=== PATIENT | female | born 1965 | race Caucasian/White ===

== ENCOUNTER 2023-06-04 04:08 | Inpatient (IN) | payer OTHER, SELFPAY ==
[2023-06-04] VITALS (13 sets, daily range): BP systolic 115–190; BP diastolic 68–149; PULSE 62–101; RESP 12–22; TEMP 36.4–37; O2SAT 86–99
--- NOTE | 2023-06-04 04:24 | ECG_ITS ---
[facility] Test Date: 2023-06-04 Pat Name: Rema Kumar Department: Room: Gender: Female Division Human Resources Manager: : 1965 Requested By: Felix Howard Order Number: [id number] Alatorre MD: Angelique Mackenzie M.D. Measurements Intervals [place] Rate: 85 P: 45 AK: 171 QRS: 31 QRSD: 94 T: 55 QT: 383 QTc: 457 Interpretive Statements SINUS RHYTHM No previous ECG available for comparison Electronically Signed On 06-06-2023 18:45:16 PHONE SCREENER by Angelique Mackenzie M.D. [email or web address]
[2023-06-04] MEDS: LORazepam 2 mg/mL INJ 1 mL 1 MG IM (04:29)
[2023-06-04] MEDS: ziprasidone 20 mg/mL SDV IM (04:30)
[2023-06-04] MEDS: water for injection-sterile 10 ML 1.2 ML (04:30)
[2023-06-04 05:58] LABS: Add Urine Microscopic? NO; Charge for UA Resulting for Rev
[2023-06-04 05:58] LABS: Basophils % 0.7 %; Eosinophils % 0.7 %; Hematocrit 39.8 % (36-47); Lymphocytes # 1.2 10^3/uL (0.8-4.8); Lymphocytes % 29.8 %; Mean Corpuscular HGB Conc 30.9 g/dL (30-55); Mean Corpuscular Hemoglobin 28.7 pg (27-33); Mean Corpuscular Volume 92.8 fl (85-98); Mean Platelet Volume 10.2 fL (7.4-10.4); Monocytes # 0.4 10^3/uL (0.2-0.9); Monocytes % 10.5 %; Neutrophils # 2.37 10^3/uL (1.8-7.7); Neutrophils % 58.1 %; Nucleated Red Blood Cells % 0 %; Platelet Count 181 10^3/cmm (157-399); Red Blood Count 4.29 10^6/uL (3.85-5.65); Red Cell Distribution Width 14.2 % (12.1-15.1); White Blood Count 4.09 10^3/uL (3.29-11.43)
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
[2023-06-04 06:13] LABS: Bilirubin Urine Neg (Negative); Blood Urine Neg (Negative); Glucose Urine UA Norm (Normal); Ketones Urine 1+ (Negative); Leukocyte Esterase Urine Negative (Negative); Nitrate Urine Negative (Negative); Protein Urine Neg (Negative); Specific Gravity, Urine 1.015 (1.005-1.030); Urine Appearance Clear (CLEAR); Urine Color Yellow (Yellow); Urobilinogen Urine Neg (Negative); pH Urine 6 (5-7)
[2023-06-04 06:21] LABS: Amphetamines Screen Urine Negative (Negative); Barbiturates Screen Urine Negative (Negative); Benzodiazepines Screen Urine Negative (Negative); Cocaine Screen Urine Negative (Negative); Opiate Screen Urine Negative (Negative); PCP Screen Urine Negative (Negative); THC Screen Urine Positive (Negative)
--- NOTE | 2023-06-04 06:24 | PC.NURSE ---
The contacted the [facility] and spoke with NATALIE Leyva; pt [facility] for [facility]. Per Steven they will place a note on her chart and will call if a bed becomes available.
[2023-06-04 06:28] LABS: SARS Covid-2 Antigen negative (Negative)
[2023-06-04 06:30] LABS: Alanine Aminotransferase < 5 U/L (0-33); Albumin Level 4.2 g/dL (3.5-5.2); Alkaline Phosphatase 107 U/L (35-105); Anion Gap 13.5 (5-19); Aspartate Amino Transferase 9 U/L (0-32); Blood Urea Nitrogen 21 mg/dL (6-20); Calcium 9.9 mg/dL (8.5-10.5); Carbon Dioxide 28 mmol/L (22-29); Chloride 104 mmol/L (98-107); Globulin 3.3 g/dL (1.3-4.6); Glomerular Filtration Rate 163.4 mL/min (90-130); Glucose 108 mg/dL (65-115); Osmolality Calculated 298 mOsm/kg (285-295); Potassium 3.5 mmol/L (3.5-5.1); Sodium 142 mmol/L (136-145); Thyroid Stimulating Hormone 0.98 uIU/mL (0.27-4.20); Total Bilirubin 0.3 mg/dL (0.15-1.2); Total Protein 7.5 g/dL (6.6-8.7)
[2023-06-04 06:37] LABS: Acetaminophen < 5.0 ug/mL (10-30); Alcohol Level < 10 mg/dL (0-10); Salicylate < 0.3 mg/dL (3-10)
--- NOTE | 2023-06-04 07:35 | PC.NURSE ---
96 hour hold rights This nurse attempted to read 96 hour hold rights to patient. Patient asleep and would not wake to listen to 96 hour hold rights. Vital signs stable. Copy of rights left at the bedside.
[2023-06-04] MEDS: pregabalin 100 mg Capsule 200 MG PO ×2 (14:39→20:54)
[2023-06-04] MEDS: ropinirole 2 mg Tablet 4 MG PO ×2 (14:40→20:53)
[2023-06-04] MEDS: carbidopa-levodopa 25-100mg Tablet 2 EACH PO ×4 (14:40→21:00)
[2023-06-04] MEDS: metoprolol tartrate 25 mg Tablet PO (17:55)
[2023-06-04] MEDS: thiamine 100 mg Tablet PO (17:55)
--- NOTE | 2023-06-04 20:27 | PC.NURSE ---
IN BED RESTING, TOOK 1900 MEDICATIONS WITHOUT DIFFICULTY. SITS UP IN BED AND ROCKS BACK AND FORTH CONSTANTLY. NURSE TECH ASSISTED PT TO BATHROOM IN WHEELCHAIR WITH TWO ASSIST. PT VOIDED APPROXIMATELY 600 MLS OF URINE WITHOUT DIFFICULTY AND REPORTED TO NURSE I REALLY EMPTIED IT THAT TIME. PT DENIES SI/HI AND AVH AT THIS TIME. PT HAS SOME CONFUSION, WITH PRESSURED SPEECH AND RAMBLES WHEN SPEAKING. PT STATES SHE DOES NOT KNOW WHY SHE IS HERE. REPORTS 5/10 BACK PAIN. 1000MG OF TYLENOL GIVEN ORDERED. PT WAS ABLE TO SIT UP IN BED WASH FACE. PT TAKES OFF HEEL PROTECTORS AND THEN REAPPLIES THEM CONSTANTLY. PT WAS REDIRECTED WITH LITTLE EFFECT. RATES ANXIETY AND DEPRESSION 0/10. PT IS COOPERATIVE BUT DOES NEED CONSTANT DIRECTION FROM STAFF. SUPPORT VOICED.
[2023-06-04] MEDS: acetaminophen 500 mg Tablet 1000 MG PO (20:52)
[2023-06-04] MEDS: divalproex ER 250 mg Tablet (24H) PO (20:53)
[2023-06-04] MEDS: atorvastatin 40 mg Tablet 20 MG PO (20:53)
[2023-06-04] MEDS: trazodone 50 mg Tablet PO (20:54)
[2023-06-04] MEDS: NON-FORMULARY MEDICATION (Docusate Sodium 50 mg Capsule) 50 EACH PO (20:55)
--- NOTE | 2023-06-05 03:02 | PC.NURSE ---
PT ASSISTED UP TO THE BATHROOM WITH ONE ASSIST, WAS ABLE TO URINATE BUT ONLY APPROXIMATELY 100-150 MLS WITH A WEAK STREAM NOTED. SCANNED BLADDER PER 'S ORDER, REVEALS ONLY 89 TO 98 MLS OF URINE IN THE BLADDER. PT STATES SHE FEELS NO PRESSURE OR URGE TO URINATE. EDUCATED PT THAT STAFF WOULD ASSIST HER UP TO USE THE BATHROOM WHEN NEEDED. SUPPORT VOICED. NO FURTHER INTERVENTIONS NEEDED AT THIS TIME.
--- NOTE | 2023-06-05 04:47 | PC.NURSE ---
PT WAS ASSISTED TO THE BATHROOM WITH 2 STAFF ASSIST. PT VOIDED LARGE AMOUNTS OF URINE WITHOUT DIFFICULTY. PT ASSISTED BACK TO BED.
[2023-06-05 06:00] VITALS: BP 124/80; PULSE 90; RESP 14; TEMP 37; O2SAT 97
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
[2023-06-05] MEDS: ropinirole 2 mg Tablet 4 MG PO ×3 (07:44→20:16)
[2023-06-05] MEDS: carbidopa-levodopa 25-100mg Tablet 2 EACH PO ×6 (07:44→21:35)
[2023-06-05] MEDS: thiamine 100 mg Tablet PO ×2 (07:45→17:37)
[2023-06-05] MEDS: pregabalin 100 mg Capsule 200 MG PO ×3 (07:45→20:18)
[2023-06-05] MEDS: sertraline 50 mg Tablet 25 MG PO (07:45)
[2023-06-05] MEDS: metoprolol tartrate 25 mg Tablet PO ×2 (07:45→17:37)
[2023-06-05] MEDS: hydroCHLOROthiazide 25 mg Tablet 12.5 MG PO (07:46)
[2023-06-05] MEDS: NON-FORMULARY MEDICATION (Docusate Sodium 50 mg Capsule) 50 EACH PO ×2 (07:47→17:37)
[2023-06-05] MEDS: lidocaine 5% Patch 1 PATCH TOPICAL (07:49)
[2023-06-05] MEDS: acetaminophen 325 mg Tablet 650 MG PO ×2 (08:07→12:52)
[2023-06-05] MEDS: NON-FORMULARY MEDICATION (Linaclotide [Linzess] 145 MCG) 145 EACH PO (08:38)
[2023-06-05 09:28] VITALS: BP 124/80; PULSE 90; RESP 14; TEMP 37; O2SAT 97
[2023-06-05] MEDS: blistex lip oint 7 gm Tube 1 APPLIC TOPICAL (11:09)
[2023-06-05 14:00] VITALS: BP 134/71; PULSE 89; RESP 20; TEMP 37.1; O2SAT 92
[2023-06-05] MEDS: cyclobenzaprine 10 mg Tablet PO (18:32)
[2023-06-05] MEDS: atorvastatin 40 mg Tablet 20 MG PO (20:18)
[2023-06-05] MEDS: divalproex ER 250 mg Tablet (24H) PO (20:18)
[2023-06-05] MEDS: trazodone 50 mg Tablet PO (20:21)
[2023-06-05 21:00] VITALS: BP 132/81; PULSE 85; RESP 18; TEMP 36.9; O2SAT 91
--- NOTE | 2023-06-05 21:02 | PC.NURSE ---
PT IN WHEELCHAIR DURING ASSESSMENT. PT WAS INFORMED TO SIT BACK THAT SHE WAS GOING TO FALL. PT BECAME AGITATED STATING I'M NOT GOING TO FALL, JUST GET AWAY FROM ME AND STOP BOSSING ME AROUND. PT DENIES SI/HI AND AVH, DENIES PAIN. PT HAS PRESSURE SPEECH AND IS RAMBLING ABOUT SEEING STAFF ON HER PHONE ALL DAY. PT IS OBSERVED TO HAVE DELUSIONS AT TIME. PT IS ABLE TO BE REDIRECTED AT TIME. TAKES MEDS WITHOUT DIFFICULTY. PT CONTINUES TO BE A ONE TO TWO STAFF ASSIST. PT WAS GIVEN VISTARIL 50 MG FOR INCREASED ANXIETY AND TRAZODONE 50 MG FOR INSOMNIA. SUPPORT VOICED.
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
--- NOTE | 2023-06-05 23:02 | PC.NURSE ---
VITALS OBTAINED POST FALL, 97.8, 89, 20, 91% RA AND 147/75.
[2023-06-06 06:00] VITALS: RESP 16
[2023-06-06] MEDS: thiamine 100 mg Tablet PO ×2 (08:00→18:44)
[2023-06-06] MEDS: sertraline 50 mg Tablet 25 MG PO (08:00)
[2023-06-06] MEDS: metoprolol tartrate 25 mg Tablet PO ×2 (08:00→18:44)
[2023-06-06] MEDS: hydroCHLOROthiazide 25 mg Tablet 12.5 MG PO (08:00)
[2023-06-06] MEDS: carbidopa-levodopa 25-100mg Tablet 2 EACH PO ×5 (08:00→22:06)
[2023-06-06] MEDS: ropinirole 2 mg Tablet 4 MG PO ×3 (08:00→20:18)
[2023-06-06] MEDS: pregabalin 100 mg Capsule 200 MG PO ×3 (08:00→20:18)
[2023-06-06] MEDS: NON-FORMULARY MEDICATION (Docusate Sodium 50 mg Capsule) 50 EACH PO ×2 (08:02→18:45)
[2023-06-06] MEDS: lidocaine 5% Patch 1 PATCH TOPICAL (08:05)
[2023-06-06] MEDS: NON-FORMULARY MEDICATION (Linaclotide [Linzess] 145 MCG) 145 EACH PO (08:34)
--- NOTE | 2023-06-06 08:57 | PC.PT ---
Received PT evaluation request, due to fall, contacted nursing staff, who state patient slid out of her wheelchair, and patient has discharge summary in chart supposed to discharge today, after further discussion with patient nurse, patient nurse felt no PT intervention necessary, or indicated, and stated she would have order canceled. No further PT intervention planned at this time, unless further orders received.
--- NOTE | 2023-06-06 10:30 | PC.NURSE ---
TAKEN TO CSU TO USE SHOWER, PATIENT SHOWERED BODY AND WASHED HAIR WITH MINIMAL STAFF ASSISTANCE, CHANGED INTO CLEAN BRIEF & SCRUBS. LINEN CHANGED BY STAFF
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
[2023-06-06] MEDS: acetaminophen 325 mg Tablet 650 MG PO (13:51)
[2023-06-06 14:00] VITALS: BP 149/82; PULSE 92; RESP 18; TEMP 36.5; O2SAT 93
[2023-06-06 20:04] VITALS: BP 129/80; PULSE 81; RESP 18; TEMP 36.4; O2SAT 93
[2023-06-06] MEDS: atorvastatin 40 mg Tablet 20 MG PO (20:17)
[2023-06-06] MEDS: divalproex ER 250 mg Tablet (24H) PO (20:18)
[2023-06-06] MEDS: hyDROXYzine 25 mg Capsule 50 MG PO (20:18)
--- NOTE | 2023-06-07 04:39 | PC.NURSE ---
PT REPORTED ANXIETY AT THE BEGINNING OF SHIFT RATING IT 6/10. PT WAS GIVEN VISTARIL 50 MG ORDERED FOR ANXIETY. PT HAS BEEN RESTING IN BED WITH EYES CLOSED SINCE 0 LAST NIGHT, PT CURRENTLY RESTING IN ROOM. VISTARIL DEEMED EFFECTIVE.
[2023-06-07 06:00] VITALS: RESP 16
[2023-06-07] MEDS: acetaminophen 500 mg Tablet 1000 MG PO ×2 (07:55→17:34)
[2023-06-07] MEDS: carbidopa-levodopa 25-100mg Tablet 2 EACH PO ×6 (07:55→21:04)
[2023-06-07] MEDS: pregabalin 100 mg Capsule 200 MG PO ×3 (10:05→21:04)
[2023-06-07] MEDS: ropinirole 2 mg Tablet 4 MG PO ×3 (10:06→21:04)
[2023-06-07] MEDS: thiamine 100 mg Tablet PO ×2 (10:06→17:31)
[2023-06-07] MEDS: hydroCHLOROthiazide 25 mg Tablet 12.5 MG PO (10:06)
[2023-06-07] MEDS: metoprolol tartrate 25 mg Tablet PO ×2 (10:06→17:31)
[2023-06-07] MEDS: NON-FORMULARY MEDICATION (Docusate Sodium 50 mg Capsule) 50 EACH PO (10:07)
[2023-06-07] MEDS: sertraline 50 mg Tablet 25 MG PO (10:08)
[2023-06-07] MEDS: NON-FORMULARY MEDICATION (Linaclotide [Linzess] 145 MCG) 145 EACH PO (10:08)
[2023-06-07] MEDS: lidocaine 5% Patch 1 PATCH TOPICAL (10:09)
--- NOTE | 2023-06-07 10:44 | PC.NURSE ---
applied new Lidocaine patch as ordered, applied to left lower back. old patch from yesterday morning was still there, not removed by shift coordinator. old patch from 06/06/23 removed & disposed of
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
[2023-06-07 14:00] VITALS: BP 135/72; PULSE 85; RESP 15; TEMP 36.7; O2SAT 93
[2023-06-07 20:53] VITALS: BP 142/81; PULSE 75; RESP 18; O2SAT 91
[2023-06-07] MEDS: divalproex ER 250 mg Tablet (24H) PO (21:04)
[2023-06-07] MEDS: atorvastatin 40 mg Tablet 20 MG PO (21:05)
[2023-06-08] MEDS: carbidopa-levodopa 25-100mg Tablet 2 EACH PO ×8 (01:19→21:02)
[2023-06-08 06:00] VITALS: BP 114/73; PULSE 78; RESP 18; TEMP 36.6; O2SAT 94
[2023-06-08] MEDS: hydroCHLOROthiazide 25 mg Tablet 12.5 MG PO (09:02)
[2023-06-08] MEDS: thiamine 100 mg Tablet PO ×2 (09:02→17:45)
[2023-06-08] MEDS: ropinirole 2 mg Tablet 4 MG PO ×3 (09:02→21:02)
[2023-06-08] MEDS: sertraline 50 mg Tablet 25 MG PO (09:03)
[2023-06-08] MEDS: pregabalin 100 mg Capsule 200 MG PO ×3 (09:03→21:02)
[2023-06-08] MEDS: NON-FORMULARY MEDICATION (Linaclotide [Linzess] 145 MCG) 145 EACH PO (09:04)
[2023-06-08] MEDS: metoprolol tartrate 25 mg Tablet PO ×2 (09:04→17:45)
[2023-06-08] MEDS: NON-FORMULARY MEDICATION (Docusate Sodium 50 mg Capsule) 50 EACH PO ×2 (09:05→17:45)
[2023-06-08] MEDS: lidocaine 5% Patch 1 PATCH TOPICAL (09:05)
[2023-06-08] MEDS: acetaminophen 500 mg Tablet 1000 MG PO ×2 (10:34→19:55)
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
[2023-06-08 14:00] VITALS: BP 114/57; PULSE 86; RESP 18; TEMP 36.9; O2SAT 96
[2023-06-08] MEDS: ibuprofen 600 mg Tablet PO (14:06)
--- NOTE | 2023-06-08 15:27 | PHA.FALL ---
A Pharmacy Consult Was Conducted For Rema Kumar Due To: Butts Fall Scale Risk Level: High Fall Risk On 06/08/23 08:00 And A Medication Fall Risk Score Greater Than 10. The Recommendations Are As Follows: The [place] [employer] has compiled a referenced resource for High-Risk Medications Attributed to Falls in Older Adults. list available upon request or at www.[employer].CORP80 These meds given alone show increased risk, in combination effects may be additive Medications which cause/contribute to: 1 = sedation/fatigue/lethargy 2 = decreased alertness 3 = postural/orthostatic hypotension 4 = dizziness 5 = decreased neuromuscular function/ataxia 6 = decreased memory/cognitive impairment 7 = blurred vision 8 = confusion 9 = arrhythmias 10 = syncope 11 = anemia *=Potentially Inappropriate Medications Prescribed in Older Adults Beer?s Criteria Several high-risk fall medications also appear on a peer-reviewed list of medications which pose additional safety concerns in older adults called the Beer?s Criteria. These medications will be designated with an asterisk (*). This evidence may be important to cite to physicians to promote change in prescribing cyclobenzaprine LAURA 1,3,4,9,10 Divalproex LAURA 1,3,4,5,6,7,8,10 Haloperidol: LAURA: 1,3,4,5,7,8,10 Lorazepam -LAURA: 1,3,4,5,6,8,10 metoprolol LAURA: 1,2,3,4,5,9,10 Olanzipine: LAURA 2,3,4,5,6,8,10 Any medication with strong anticholinergic effects. ? Antihistamines: Diphenhydramine, Hydroxyzine
--- NOTE | 2023-06-08 15:44 | PHA.FALL ---
A Pharmacy Consult Was Conducted For Rema Kumar Due To: Butts Fall Scale Risk Level: High Fall Risk On 06/08/23 08:00 And A Medication Fall Risk Score Greater Than 10. The Recommendations Are As Follows: The [place] [facility] has compiled a referenced resource for High-Risk Medications Attributed to Falls in Older Adults. list available upon request or at www.[employer].Pocket Social These meds given alone show increased risk, in combination effects may be additive Medications which cause/contribute to: 1 = sedation/fatigue/lethargy 2 = decreased alertness 3 = postural/orthostatic hypotension 4 = dizziness 5 = decreased neuromuscular function/ataxia 6 = decreased memory/cognitive impairment 7 = blurred vision 8 = confusion 9 = arrhythmias 10 = syncope 11 = anemia *=Potentially Inappropriate Medications Prescribed in Older Adults Beer?s Criteria Several high-risk fall medications also appear on a peer-reviewed list of medications which pose additional safety concerns in older adults called the Beer?s Criteria. These medications will be designated with an asterisk (*). This evidence may be important to cite to physicians to promote change in prescribing cyclobenzaprine LAURA: 1,3,4,9,10 Divalproex ER LAURA: 1,3,4,5,6,7,8,10 Haloperidol: LAURA: 1,3,4,5,7,8,10 Lyrica LAURA: 1,3,4,5,6,7,8,10 Ibuprofen LAURA: 1,2,3,4,7,8,11 Lorazepam -LAURA: 1,3,4,5,6,8,10 Olanzipine: LAURA 2,3,4,5,6,8,10 ropinirole: Neurologic:?Dizziness (6% to 40% ), Dyskinesia (7% to 34% ), Headache (6% to 8% ), Somnolence (7% to 40%; sudden onset of sleep, up to 5% ) Sertraline - LAURA: 1,3,4,7,8,10 Dipenhydramine, Hydroxyzine : LAURA: Anticholenergic Thank you, Beverly Lala [facility]
--- NOTE | 2023-06-08 20:04 | PC.NURSE ---
Pt remains at nurses station perseverating on discharging to whomever will help her with her ADL management. Pt laminates on the course of the situation that lead her to be admitted her. One on one time and redirection provided to patient. Pt is now eating a snack at the nurses station. PRN APAP administered for c/o headache, which she attributes to not having the glasses that are in her truck. Pt is also upset about not being able to access outside food sources such a pizza dilevery, and states that the physician is a liar. One on one care and redirection continues, no respiratory distress present.
[2023-06-08] MEDS: atorvastatin 40 mg Tablet 20 MG PO (21:02)
[2023-06-08] MEDS: divalproex ER 250 mg Tablet (24H) PO (21:02)
[2023-06-08 21:26] VITALS: BP 120/70; PULSE 82; RESP 18; TEMP 37.1; O2SAT 92
[2023-06-09 06:00] VITALS: BP 150/78; PULSE 81; RESP 18; TEMP 36.4; O2SAT 93
[2023-06-09] MEDS: carbidopa-levodopa 25-100mg Tablet 2 EACH PO ×6 (06:30→21:05)
[2023-06-09] MEDS: pregabalin 100 mg Capsule 200 MG PO ×3 (08:18→21:04)
[2023-06-09] MEDS: ropinirole 2 mg Tablet 4 MG PO ×3 (08:18→21:04)
[2023-06-09] MEDS: sertraline 50 mg Tablet 25 MG PO (08:19)
[2023-06-09] MEDS: thiamine 100 mg Tablet PO ×2 (08:19→18:23)
[2023-06-09] MEDS: hydroCHLOROthiazide 25 mg Tablet 12.5 MG PO (08:19)
[2023-06-09] MEDS: metoprolol tartrate 25 mg Tablet PO ×2 (08:19→18:23)
[2023-06-09] MEDS: NON-FORMULARY MEDICATION (Linaclotide [Linzess] 145 MCG) 145 EACH PO (08:19)
[2023-06-09] MEDS: NON-FORMULARY MEDICATION (Docusate Sodium 50 mg Capsule) 50 EACH PO ×2 (08:20→18:22)
[2023-06-09] MEDS: lidocaine 5% Patch 1 PATCH TOPICAL (08:21)
[2023-06-09 13:52] VITALS: BP 152/80; PULSE 85; RESP 17; TEMP 36.6; O2SAT 93
[2023-06-09] MEDS: acetaminophen 500 mg Tablet 1000 MG PO (15:02)
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
[2023-06-09 20:43] VITALS: BP 120/74; PULSE 71; RESP 18; TEMP 36.7; O2SAT 96
[2023-06-09] MEDS: divalproex ER 250 mg Tablet (24H) PO (21:04)
[2023-06-09] MEDS: atorvastatin 40 mg Tablet 20 MG PO (21:04)
[2023-06-10] MEDS: acetaminophen 500 mg Tablet 1000 MG PO ×2 (02:42→18:51)
[2023-06-10] MEDS: cyclobenzaprine 10 mg Tablet PO (02:43)
[2023-06-10] MEDS: carbidopa-levodopa 25-100mg Tablet 2 EACH PO ×6 (06:46→22:00)
--- NOTE | 2023-06-10 06:54 | PC.NURSE ---
pt ref vs resp 16
[2023-06-10] MEDS: pregabalin 100 mg Capsule 200 MG PO ×3 (09:08→21:55)
[2023-06-10] MEDS: sertraline 50 mg Tablet 25 MG PO (09:08)
[2023-06-10] MEDS: hydroCHLOROthiazide 25 mg Tablet 12.5 MG PO (09:09)
[2023-06-10] MEDS: metoprolol tartrate 25 mg Tablet PO ×2 (09:09→17:32)
[2023-06-10] MEDS: thiamine 100 mg Tablet PO ×2 (09:09→17:32)
[2023-06-10] MEDS: ropinirole 2 mg Tablet 4 MG PO ×3 (09:09→21:53)
[2023-06-10] MEDS: NON-FORMULARY MEDICATION (Docusate Sodium 50 mg Capsule) 50 EACH PO (09:10)
[2023-06-10] MEDS: NON-FORMULARY MEDICATION (Linaclotide [Linzess] 145 MCG) 145 EACH PO (09:10)
[2023-06-10] MEDS: lidocaine 5% Patch 1 PATCH TOPICAL (09:13)
[2023-06-10 14:00] VITALS: BP 143/86; PULSE 80; RESP 20; TEMP 36.6; O2SAT 97
[2023-06-10] MEDS: loperamide 2 mg Capsule PO (14:16)
--- NOTE | 2023-06-10 17:43 | PC.NURSE ---
1800 docusate medication was held due to loose stools
[2023-06-10 20:06] VITALS: BP 108/68; PULSE 82; RESP 20; TEMP 37.3; O2SAT 92
[2023-06-10] MEDS: atorvastatin 40 mg Tablet 20 MG PO (21:54)
[2023-06-10] MEDS: divalproex ER 250 mg Tablet (24H) PO (21:54)
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
[2023-06-11] MEDS: acetaminophen 325 mg Tablet 650 MG PO (04:34)
[2023-06-11] MEDS: cyclobenzaprine 10 mg Tablet PO ×2 (04:35→13:23)
[2023-06-11 06:00] VITALS: BP 173/77; PULSE 83; RESP 20; TEMP 36.5; O2SAT 94
[2023-06-11] MEDS: carbidopa-levodopa 25-100mg Tablet 2 EACH PO ×3 (06:25→13:21)
--- NOTE | 2023-06-11 06:43 | W.PM.NPUPNS ---
Subjective NPU Subjective: Patient presented today reporting that she is feeling better. She continues to work with the social work team for appropriate discharges given her significant physical limitations. We discussed the different options and attempting to get discharged as soon as possible. She now reports her plan is to [place] a [place] around [place] [facility]. We discussed her stubbornness and attempting to find something perfect getting in the way of some good options. She is working with the [place] [facility] program as well. Mental Status Exam MSE Comments: This is an overweight versus obese weight female looking much older than her stated age with hospital scrubs on and limited grooming and appropriate eye contact. No abnormal movements except for mild psychomotor agitation with fairly constant parkinsonian movements. More cooperative with exam in no acute distress. Speech was increased rate and normal volume. Mood described as better, affect subdued but possibly misinterpretation of parkinsonian facies. Thought process mostly organized. Thought content: Patient denied suicidal or homicidal ideation, there were no delusions reported or noted, she denied any auditory or visual hallucinations. Attention and concentration were mostly intact and memory appeared reliable but none were formally tested. She is alert and oriented x3. Insight and judgment appear fair impulse control appears fair as well. Vitals/I&O/Wt Last Vital Signs Temp 99.1 F 06/10/23 20:06 Pulse 82 06/10/23 20:06 Resp 20 H 06/10/23 20:06 BP 108/68 06/10/23 20:06 Pulse Ox 92 06/10/23 20:06 O2 Del Method Room Air 06/10/23 20:06 Data NPU 06/04/23 05:50 06/04/23 05:50 A&P Assessment and plan (1) Altered mental status: Plan This is a 57-year-old white female with a reported significant history of mental health challenges but the timeline is unknown as she is a poor historian and family is not very helpful but she recently had a psychiatric stay at the [place] where she is connected and she was given a diagnosis of dementia which was not explained upon admission as she presents needing full care with symptoms consistent with dementia. 1. Continue current medication. 2. Encourage individual, group and milieu therapy. 3. Continue every 15 minute checks for safety and assist where needed for self-care. 4. Given the history that we believe we know now this patient is appropriate for the referral to skilled nursing care likely and in need of ongoing geriatric care as well as neurology. 5. We will work with family for therapeutic discharge as soon as possible as there would be little to nothing we would ultimately be able to do for her in an acute adult psychiatric facility. 6. We will continue to try to identify some collateral information that is conformable as this situation is very unclear. Patient with bags of medication and clearly altered mental status could come from overmedication, lack of consistency with medication or as needed medications either at her previous discharge or here in the emergency department. 7. Working to get discharge summary and other information from previous hospital. Got discharge information which was for a medical hospitalization patient made a complaint to the local police about her abandonment and using her money and resources and then leaving her here. Working with family to assist and discharge to her desired residence. Now working with the OR to assist her getting to a safe location. Involuntary Hold Information 96 Hour Hold: 96 Hour Involuntary Admission: Yes 96 Hour Hold Ending Date: 06/10/23 96 Hour Hold Ending Time: 00:01 Attestations NPU Medical Necessity Statement*: Inpatient hospitalization is medically necessary and the clinically appropriate intervention at this time. We will monitor medications and make changes as indicated. Likely length of stay 1 to 3 days. Coding Level of Care Code Acute Code for Chg Fwd Diagnoses Altered mental status R41.82
[2023-06-11] MEDS: ropinirole 2 mg Tablet 4 MG PO (09:02)
[2023-06-11] MEDS: hydroCHLOROthiazide 25 mg Tablet 12.5 MG PO (09:02)
[2023-06-11] MEDS: metoprolol tartrate 25 mg Tablet PO (09:02)
[2023-06-11] MEDS: thiamine 100 mg Tablet PO (09:02)
[2023-06-11] MEDS: pregabalin 100 mg Capsule 200 MG PO (09:02)
[2023-06-11] MEDS: sertraline 50 mg Tablet 25 MG PO (09:02)
[2023-06-11] MEDS: lidocaine 5% Patch 1 PATCH TOPICAL (09:05)
[2023-06-11] MEDS: acetaminophen 500 mg Tablet 1000 MG PO (13:23)
[2023-06-11 13:28] VITALS: BP 142/84; PULSE 88; RESP 13; TEMP 36.4; O2SAT 95
== END 2023-06-11 14:00 | disposition home or self-care (01) | DRG 948 ==
LOC: ER 07:20 → NP 08:48
PROVIDERS: Emergency Medicine; Admitting Provider Psychiatry & Neurology Psychiatry; Emergency Provider Emergency Medicine; Visit Provider Psychiatry & Neurology Psychiatry
DX: R41.82 Altered mental status, unspecified (principal); F02.811 Dementia in other diseases classified elsewhere, unspecified severity, with agitation; G20.A1 Parkinson's disease without dyskinesia, without mention of fluctuations
CPT/HCPCS: 51702; 51798; 80053; 80306; 80307; 81003; 84443; 85025; 87426; 93005; 96372; 97110; 97116; 97150; 97161; 97165; 97167; 99285; J2060; J3486